=== PATIENT | female | born 1980 | race Two or more races ===

== ENCOUNTER 2019-01-04 15:48 | Emergency (ER) | payer SELFPAY ==
[~2019-01-04] VITALS: Ht 160 cm; Wt 77.1 kg
[2019-01-04 15:55] VITALS: BP 91/50
== END 2019-01-04 17:31 | disposition home or self-care (01) ==
LOC: ER 15:53
DX: R10.84 Generalized abdominal pain (principal); F17.210 Nicotine dependence, cigarettes, uncomplicated; F12.10 Cannabis abuse, uncomplicated; Z90.49 Acquired absence of other specified parts of digestive tract; Z98.51 Tubal ligation status; Z88.0 Allergy status to penicillin